=== PATIENT | female | born 1950 | race Caucasian/White ===

== ENCOUNTER 2022-01-13 02:32 | Inpatient (IN) | payer OTHER ==
[~2022-01-13] VITALS: Ht 149.9 cm; Wt 73.0 kg
--- NOTE | 2022-01-13 02:45 | NUR ---
Dr. Egan at bedside for MSE
[2022-01-13] MEDS ORDERED: ALBUTEROL SULFATE 2.5 MG/3 ML NEBU NEB ONE ×2 (03:00→04:00)
[2022-01-13] MEDS ORDERED: IPRATROPIUM BROMIDE 0.5 MG/2.5 ML NEBU NEB ONE (03:00)
[2022-01-13] MEDS ORDERED: IPRATROPIUM BROMIDE 0.5 MG/2.5 ML NEBU ONE (03:01)
[2022-01-13] MEDS ORDERED: ALBUTEROL SULFATE 2.5 MG/3 ML NEBU ONE ×2 (03:01→03:55)
--- NOTE | 2022-01-13 03:15 | NUR ---
XRay at bedside
[2022-01-13 03:31] LABS: CARBON DIOXIDE 27 mmol/L (21-32); CHLORIDE 105 mmol/L (98-107); CREATININE 0.8 mg/dL (0.6-1.3); GLUCOSE 136 mg/dL (74-106); POTASSIUM 4.5 mmol/L (3.5-5.1); UREA NITROGEN, BLOOD 19 mg/dL (7-18)
[2022-01-13 03:38] LABS: HEMATOCRIT 44.7 % (31.2-41.9); MEAN CORPUSCULAR HEMOGLOBIN 29.4 uug (24.7-32.8); MEAN CORPUSCULAR VOLUME 85.3 fL (75.5-95.3); PLATELET COUNT (AUTO) 307 K/uL (179-408)
[2022-01-13 03:40] LABS: ALANINE AMINOTRANSFERASE 23 U/L (14-59); ALKALINE PHOSPHATASE 84 U/L (50-136); ASPARTATE AMINOTRANSFERASE 10 U/L (15-37); BILIRUBIN,TOTAL 0.2 mg/dL (0.2-1.0); TOTAL PROTEIN, SERUM 7.9 g/dL (6.4-8.2)
[2022-01-13] MEDS ORDERED: METO-357 PO ×2 (04:00→06:46)
[2022-01-13] MEDS ORDERED: predniSONE 50 MG TABLET PO ONE (04:00)
[2022-01-13] MEDS ORDERED: BENZONATATE 100 MG CAPSULE PO ONE (04:00)
[2022-01-13] MEDS ORDERED: BENZONATATE 100 MG CAPSULE ONE (04:05)
[2022-01-13] MEDS ORDERED: predniSONE 50 MG TABLET ONE (04:05)
[2022-01-13] MEDS ORDERED: CEFTRIAXONE /D5W 50ML IVPB **ER PYXIS IV ONE (04:51)
[2022-01-13] MEDS ORDERED: AZITHROMYCIN 500MG/ D5W 250ML IVPB **ER PYXIS ONLY IV ONE (04:51)
--- NOTE | 2022-01-13 04:59 | NUR ---
Pt resting in bed with family member at bedside. IV antibiotics infusing, tolerating well with no adverse reactions.
[2022-01-13] MEDS ORDERED: CEFTRIAXONE 1 G in IV DEXTROSE 5% 50 ML IV ONE (05:00)
[2022-01-13] MEDS ORDERED: AZITHROMYCIN IV 500 MG in IV DEXTROSE 5% 250 ML IV ONE (05:00)
[2022-01-13] MEDS ORDERED: ASPI81TA31 PO (06:46)
--- NOTE | 2022-01-13 07:04 | NUR ---
Report given to Tia MONREAL
--- NOTE | 2022-01-13 07:07 | NUR ---
Called [facility] for panel call to morena García NP
--- NOTE | 2022-01-13 08:34 | NUR ---
ER spoke to Madeline García NP for tele admit. Breakfast tray provided, Pt ate w/ moderate appettite.
[2022-01-13] MEDS ORDERED: ACETAMINOPHEN 325 MG TABLET PO PRN (08:45)
[2022-01-13] MEDS ORDERED: IV NS 1000 ML 1,000 ML IV PRN (08:45)
[2022-01-13] MEDS ORDERED: REMEDY ESSENTIAL ZINC PASTE 113 GM TP PRN (08:45)
[2022-01-13] MEDS ORDERED: ONDANSETRON 4 MG/2 ML VIAL IV PRN (08:45)
[2022-01-13] MEDS ORDERED: MAGNESIUM HYDROXIDE 30 ML LIQUID UDC PO PRN (08:45)
--- NOTE | 2022-01-13 09:20 | NUR ---
Patient is resting comfortably in bed with eyes closed, NAD noted. Awaiting for bed assignment.
[2022-01-13] MEDS ORDERED: ASPIRIN 81 MG TAB.CHEW ONE (10:06)
[2022-01-13] MEDS ORDERED: METOPROLOL SUCCINATE XL 50 MG TAB.SR.24H PO ONE (10:07)
[2022-01-13] MEDS: METOPROLOL SUCCINATE XL 50 MG TAB.SR.24H PO SCH (10:09)
[2022-01-13] MEDS: ASPIRIN 81 MG TAB.CHEW PO SCH (10:09)
--- NOTE | 2022-01-13 10:28 | NUR ---
Pt trasfered to TELE bed, room 312.
--- NOTE | 2022-01-13 12:00 | NUR ---
Admitted via w/c, accompanied by nurse. Oriented to surroundFully vaccinated for covid 19 including 3 boosters, last one on 09/01/2021. Visiting son from [place]. Hx of appy, 1/3 of anus removed. LBM last night. States she is prediabetic, but diet controlled. Son at bedside.
[2022-01-13 12:14] VITALS: BP 115/55
[2022-01-13] MEDS: levoFLOXacin 500 MG/D5W 500 MG in PREMIXED 1 EACH IV SCH (12:53)
[2022-01-13] MEDS ORDERED: methylPREDNISolone SOD SUCC 40 MG/ML VIAL IV SCH (14:00)
[2022-01-13 16:51] VITALS: BP 115/35
[2022-01-13] MEDS ORDERED: GUAIFENESIN/DEXTROMETHORPHAN 5 ML UDC PO PRN (18:15)
[2022-01-13] MEDS: ALBUTEROL SULFATE 1.25 MG/3 ML NEBU NEB PRN ×2 (18:52→23:01)
[2022-01-13 20:42] VITALS: BP 150/60
[2022-01-13] MEDS: methylPREDNISolone SOD SUCC 40 MG/ML VIAL IV SCH (20:55)
--- NOTE | 2022-01-13 20:55 | NUR ---
Patient AALox4. On Ra. No s/s of distress noted.NSr on Tele. Denies pain at this time.Ambulates to bathroom.IV on left AC patent and intact .Due meds given as ordered. No a/r noted. Call light with in reach. Son at bedside and made aware about the visiting hours policy.
[2022-01-13] MEDS ORDERED: ENOXAPARIN SODIUM 40 MG/0.4 ML DISP.SYRIN SQ SCH ×2 (21:00)
[2022-01-14 00:10] VITALS: BP 148/73
[2022-01-14 04:51] VITALS: BP 131/50
[2022-01-14 07:11] LABS: CREATININE 0.8 mg/dL (0.6-1.3); MAGNESIUM 2.1 mg/dL (1.8-2.4); POTASSIUM 4.1 mmol/L (3.5-5.1)
[2022-01-14 07:25] LABS: HEMATOCRIT 44.7 % (31.2-41.9); MEAN CORPUSCULAR HEMOGLOBIN 29.5 uug (24.7-32.8); MEAN CORPUSCULAR VOLUME 87.1 fL (75.5-95.3); PLATELET COUNT (AUTO) 283 K/uL (179-408)
--- NOTE | 2022-01-14 08:30 | NUR ---
RECEIVED PATIENT IN BED AWAKE ALERT AND ORIENTED DENIES PAIN OR DISCOMFORTS AT THIS TIME TELE IS SR WITH NO ECTOPY ABLE TO AMBULATE TO AND FROM THE BATHROOM AND VOIDING HEPLOCK LEFT AC IS INTACT NO S/S OF INFILTERATION AT THIS TIME CALL LIGHTS AND HER PERSONAL BELONGINGS ARE WITHIN EASY REACH MADE COMFORTABLE AND WILL CONTINUE TO OBSERVE.
[2022-01-14] MEDS: ASPIRIN 81 MG TAB.CHEW PO SCH (09:00)
[2022-01-14] MEDS: METOPROLOL SUCCINATE XL 50 MG TAB.SR.24H PO SCH (09:01)
[2022-01-14] MEDS: methylPREDNISolone SOD SUCC 40 MG/ML VIAL IV SCH (09:03)
[2022-01-14] MEDS: ALBUTEROL SULFATE 1.25 MG/3 ML NEBU NEB PRN (10:27)
[2022-01-14] MEDS: levoFLOXacin 500 MG/D5W 500 MG in PREMIXED 1 EACH IV SCH (11:00)
[2022-01-14] MEDS ORDERED: LEVO750T46 PO (11:27)
[2022-01-14] MEDS ORDERED: IPRA3AMP23 HHN (11:27)
[2022-01-14] MEDS ORDERED: METH4TAB3 PO (11:27)
[2022-01-14] MEDS ORDERED: NEBU-171 MC (11:27)
--- NOTE | 2022-01-14 11:55 | NUR ---
PATIENT SEEN AND EXAMINED BY ROSA MARIA RASCON WITH ORDER TO DISCHARGE PATIENT HOME AND HER LEVAQUIN IS DUE AT THIS TIME AND HER IV SITE IS NOT WORKING PATIENT REFUSED TO HAVE HER IV SITE CHANGED ROSA MARIA NOTIFIED AND SHE STATED OKAY TO NOT RESTART A NEW ONE PATIENT WILL CONTINUE ANY WAYS ON LEVAQUIN AT HOME WILL JUST NEED TO TAKE A DOSE TODAY AND NOTED PATIENT NOTIFIED
[2022-01-14 12:01] VITALS: BP 140/82
--- NOTE | 2022-01-14 13:15 | NUR ---
PATIENT DISCHARGED PICKED UP BY HIS SON IN SATISFACTORY CONDITION WITH DISCHARGE INSTRUCTIONS PRESCRIPTIONS AND ALL HER PERSONAL BELONGINGS AND PATIENT INSTRUCTED TO CALL AND FOLLOW UP WITH HER PRIMARY DOCTOR WITHIN THE NEXT ONE TO TWO WEEKS AND SHE EXPRESSED UNDERSTANDING.
== END 2022-01-14 13:15 | disposition home or self-care (01) | DRG 193 ==
LOC: ER 02:39 → TELE3 09:09
PROVIDERS: ADMIT Nurse Practitioner Acute Care; ATTEND Nurse Practitioner Acute Care
DX: J15.9 Unspecified bacterial pneumonia (principal); J96.01 Acute respiratory failure with hypoxia; J44.1 Chronic obstructive pulmonary disease with (acute) exacerbation; J44.0 Chronic obstructive pulmonary disease with (acute) lower respiratory infection; E66.9 Obesity, unspecified; F17.210 Nicotine dependence, cigarettes, uncomplicated; I10 Essential (primary) hypertension; Z20.822 Contact with and (suspected) exposure to COVID-19; Z71.6 Tobacco abuse counseling; Z68.32 Body mass index [BMI] 32.0-32.9, adult; Z71.3 Dietary counseling and surveillance
CPT/HCPCS: 36415; 71045; 83605; 83735; 84100; 84484; 85025; 85730; 87040; 93005; 94640; A4663; G0378; J0456; J0696; J1650; J1956; J2920; J3590; J7512